=== PATIENT | male | born 1995 | race Asian ===

== ENCOUNTER 2017-03-21 00:48 | Emergency (ER) | payer SELFPAY ==
[~2017-03-21] VITALS: Ht 175.3 cm; Wt 86.4 kg
[2017-03-21 00:49] VITALS: TEMP 36.7; Ht 175.3 cm; Wt 86.4 kg
[2017-03-21 00:58] VITALS: O2SAT 97
[2017-03-21] MEDS ORDERED: HALOPERIDOL LACTATE 5 MG/ML 1 ML VIAL IM STA ×2 (01:16→02:08)
[2017-03-21] MEDS ORDERED: LORAZEPAM 2 MG/ML 1 ML VIAL IM STA ×3 (01:16→04:20)
[2017-03-21] MEDS ORDERED: LORAZEPAM 2 MG/ML 1 ML VIAL ONE (01:18)
[2017-03-21] MEDS ORDERED: HALOPERIDOL LACTATE 5 MG/ML 1 ML VIAL ONE (01:18)
[2017-03-21 01:34] LABS: BUN/CREATININE RATIO 10.3 (10-20); CALCIUM 8.1 mg/dl (8.5-10.1); CREATININE 0.83 mg/dl (0.60-1.40); POTASSIUM 3.5 mmol/L (3.5-5.1)
--- NOTE | 2017-03-21 04:13 | EMERGENCY ROOM VISIT NOTE ---
ED Visit Note First contact with patient: 00:51 This patient was seen primarily by Jaya Escobar PA-C. However, the patient was very agitated and acting out of control and belligerent. I could hear the patient screaming out from the other side of the emergency department. I entered the patient's room and noted that he was agitated and screaming while restrained in lock to limit restraints. The patient had already received IM sedation but continued to struggle. I asked the patient if he took any additional drugs besides alcohol. He denied this. I had a lengthy conversation with the patient about his behavior. He was agreeable to try to control his outbursts. After some time, the patient seemed to of relaxed and is now currently sleeping. 0420: The patient became agitated again. He was struggling within the restraints and incoherent at times. He was screaming and became more tachycardic again. He was given an additional 2 mg of IM Ativan for a total of 6 mg 0530: The patient is sleeping comfortably at this time. Vital signs are stable.
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
[2017-03-21 11:31] VITALS: BP 160/83; PULSE 98; O2SAT 99
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
== END 2017-03-21 11:34 | disposition home or self-care (01) ==
LOC: EDBD 00:48 → C.EDB 00:50
DX: T51.0X1A Toxic effect of ethanol, accidental (unintentional), initial encounter (principal); S01.01XA Laceration without foreign body of scalp, initial encounter; R45.6 Violent behavior; F17.200 Nicotine dependence, unspecified, uncomplicated; W01.190A Fall on same level from slipping, tripping and stumbling with subsequent striking against furniture, initial encounter; Y93.89 Activity, other specified; Y92.039 Unspecified place in apartment as the place of occurrence of the external cause